=== PATIENT | female | born 1970 | race Caucasian/White ===

== ENCOUNTER → 2019-02-13 | Outpatient (CLI) | payer BC ==
[~2019-02-13] MED LIST: SPIR25TA80 PO
[2019-02-13 10:11] LABS: PLATELET COUNT, AUTOMATED 330 K/uL (150-450)
[2019-02-13 10:21] LABS: LDL CHOLESTEROL 137 mg/dl
== END ==
LOC: LAB 08:39
PROVIDERS: ATTEND Obstetrics & Gynecology
DX: Z00.00 Encounter for general adult medical examination without abnormal findings (principal)
CPT/HCPCS: 36415; 82040; 82247; 82310; 82374; 82435; 82465; 82565; 82607; 82746; 82947; 83718; 84075; 84132; 84155; 84295; 84443; 84450; 84460; 84478; 84520; 85025

== ENCOUNTER → 2019-02-13 | Outpatient (CLI) | payer BC ==
--- NOTE | 2019-02-13 09:09 | EKG ---
FACILITY: [facility] [place] PATIENT NAME: VALENTE MARQUIS : [id number] MR: [id number] V: [id number] EXAM DATE: ORDERING PHYSICIAN: REHANA GARRIDO TECHNOLOGIST: SUZANNE Test Reason : PREOP-KNEE Blood Pressure : / mmHG Vent. Rate : 058 BPM Atrial Rate : 058 BPM P-R Int : 134 ms QRS Dur : 086 ms QT Int : 406 ms P-R-T Axes : 019 019 012 degrees QTc Int : 398 ms Sinus bradycardia with sinus arrhythmia Otherwise normal ECG No previous ECGs available Confirmed by REHANA ALMAGUER ([id number]) on 02/13/2019 5:13:06 PM Referred By: RADHIKA Confirmed By:REHANA ALMAGUER
== END ==
LOC: LAB 08:35
PROVIDERS: ATTEND Anesthesiology
DX: Z01.812 Encounter for preprocedural laboratory examination (principal); Z01.810 Encounter for preprocedural cardiovascular examination; S83.242A Other tear of medial meniscus, current injury, left knee, initial encounter; R00.1 Bradycardia, unspecified
CPT/HCPCS: 93005

== ENCOUNTER → 2019-03-29 | Outpatient (CLI) | payer BC ==
--- NOTE | 2019-03-29 13:16 | RADIOLOGY IMAGING REPORT ---
FACILITY: [facility] PATIENT NAME: Suellen Zayas : 1970 MR: [id number] V: [id number] EXAM DATE: ORDERING PHYSICIAN: GRETA KEENAN TECHNOLOGIST: Location: [facility] Patient: Suellen Zayas : 1970 Visit/Account:[id number] Date of Sevice: 03/29/2019 EXAMINATION: Ultrasound pelvis transvaginal with Doppler evaluation HISTORY: Abnormal menstrual cycles COMPARISON: None available. FINDINGS: Uterus: There are multiple small fibroids, the largest of which is subserosal and in the anterior fun vicki region measuring 2.4 x 1.8 x 2.6 cm; 15.3 cm length x 7.7 cm transverse x 10.1 cm AP. Endometrium: Homogenous in appearance and measuring 8.6 mm in maximal thickness. Cervix: Few small nabothian cysts are noted. Ovaries: Right ovary 2.6 x 1.6 x 2.3 cm, left ovary 2.3 x 1.9 x 2.6 cm. There is a small cyst or fol licle noted in the right ovary which measures 1.4 x 1.5 x 1.1 cm. Blood flow is documented in each ovary by Doppler ultrasound. Adnexa: Negative. Free pelvic fluid: None. IMPRESSION: 1. Multiple small uterine fibroids. 2. Endometrial thickness is 9 mm, not enlarged in this premenopausal patient. 3. Small cyst or follicle in the right ovary measuring 1.5 cm. Report Dictated By: Luis Smith MD at 03/29/2019 12:57 PM Report E-Signed By: Luis Smith MD at 03/29/2019 1:08 PM WSN:[id number]
--- NOTE | 2019-04-04 10:49 | RADIOLOGY IMAGING REPORT ---
FACILITY: [facility] PATIENT NAME: VALENTE MARQUIS : [id number] MR: [id number] V: [id number] EXAM DATE: [id number] ORDERING PHYSICIAN: GRETA KEENAN TECHNOLOGIST: Daisy Robbins PROCEDURE: BILATERAL DIGITAL SCREENING MAMMOGRAM WITH CAD ASSISTED INTERPRETATION & 3D TOMOSYNTHESIS. REASON FOR STUDY: Screening. COMPARISON: None. VIEWS OBTAINED: 2D & 3D full field CC & MLO projections. BREAST DENSITY: The breast tissue demonstrates scattered fibroglandular tissue elements. MAMMOGRAM FINDINGS: There is no suspicious mass, calcification, or architectural distortion. IMPRESSION: BIRADS 1: Negative. DIAGNOSTIC CATEGORY 1--NEGATIVE. RECOMMENDATIONS: ROUTINE MAMMOGRAM AND CLINICAL EVALUATION IN 1YR. Dictated by: Luis Ruiz M.D. on 03/29/2019 at 13:19 Transcribed by: WALI on 03/30/2019 at 10:02 Approved by: Luis Dunne on 04/04/2019 at 10:44 [facility]
== END ==
LOC: MAMO 03-03 00:54
PROVIDERS: ATTEND Obstetrics & Gynecology
DX: Z12.31 Encounter for screening mammogram for malignant neoplasm of breast (principal); D25.9 Leiomyoma of uterus, unspecified
CPT/HCPCS: 76830; 76856; 77063; 77067